=== PATIENT | male | born 1955 | race Caucasian/White ===

== ENCOUNTER 2020-03-12 14:58 | Inpatient (IN) | payer BC ==
[~2020-03-12] VITALS: Ht 185.4 cm; Wt 107.8 kg
[2020-03-12 15:29] LABS: BASO # 0.1 10^3/uL (0.0-0.2); BASO % 0.4 % (0.0-1.0); EOS # 0.2 10^3/uL (0.0-0.5); EOS % 1.6 % (0.0-3.0); HEMATOCRIT 47.9 % (42.0-52.0); HEMOGLOBIN 15.7 g/dl (13.5-17.5); LYMPH # 1.9 10^3/uL (1.5-5.0); LYMPH % 17.3 % (24.0-44.0); MEAN CORPUSCULAR HEMOGLOBIN 30.1 pg (27.0-33.0); MEAN CORPUSCULAR HGB CONC 32.8 g/dl (32.0-36.5); MEAN CORPUSCULAR VOLUME 91.8 fl (80.0-96.0); MONO % 8.6 % (0.0-5.0); NEUTROPHILS % 71.3 % (36.0-66.0); PLATELET COUNT, AUTOMATED 247 10^3/uL (150-450); RED BLOOD COUNT 5.22 10^6/uL (4.30-6.10); WHITE BLOOD COUNT 11.2 10^3/uL (4.0-10.0)
[2020-03-12 15:40] LABS: INR 0.91
[2020-03-12 15:41] LABS: PARTIAL THROMBOPLASTIN TIME 28.2 SECONDS (25.0-38.4)
--- NOTE | 2020-03-12 15:46 | REPVR ---
PROCEDURE INFORMATION: Exam: CT Head Without Contrast Exam date and time: 03/12/2020 3:18 PM Age: 64 years old Clinical indication: Other: Neuro symptoms; Additional info: CVA TECHNIQUE: Imaging protocol: Computed tomography of the head without contrast. Radiation optimization: All CT scans at this facility use at least one of these dose optimization techniques: automated exposure control; mA and/or kV adjustment per patient size (includes targeted exams where dose is matched to clinical indication); or iterative reconstruction. COMPARISON: No relevant prior studies available. FINDINGS: Brain: There are scattered foci of low density in the bermudez radiata and centrum semiovale, likely reflecting areas of gliosis, demyelination, and/or ischemic change. There are lacunar infarcts, age-indeterminate. Ventricles: Normal. No ventriculomegaly. Bones/joints: Unremarkable. No acute fracture. Sinuses: Visualized sinuses are unremarkable. No fluid levels. Mastoid air cells: Visualized mastoid air cells are well aerated. Vasculature: There is moderate intracranial vascular calcification. Soft tissues: Unremarkable. IMPRESSION: 1. There are scattered foci of low density in the bermudez radiata and centrum semiovale, likely reflecting areas of gliosis, demyelination, and/or ischemic change. If an acute infarct is clinically suspected, consider MRI with diffusion imaging. 2. There are lacunar infarcts, age-indeterminate. If an acute infarct is clinically suspected, consider MRI with diffusion imaging. Electronically signed by: Uriel Patel On 03/12/2020 15:45:50 PM
[2020-03-12 16:07] LABS: BLOOD UREA NITROGEN 14 MG/DL (7-18); CALCIUM LEVEL 8.9 MG/DL (8.8-10.2); CARBON DIOXIDE LEVEL 27 MEQ/L (21-32); CHLORIDE LEVEL 107 MEQ/L (98-107); CPK CREATINE PHOSPHOKINASE 152 U/L (39-308); CREATININE FOR GFR 0.97 MG/DL (0.70-1.30); GLOMERULAR FILTRATION RATE > 60.0 (>49); GLUCOSE, FASTING 83 MG/DL (70-100); MB/CK RELATIVE INDEX 2.63 (< OR =4); POTASSIUM SERUM 4.2 MEQ/L (3.5-5.1); SODIUM LEVEL 142 MEQ/L (136-145); TROPONIN I < 0.02 NG/ML (< 0.10)
--- NOTE | 2020-03-12 16:13 | REP ---
CHEST SINGLE VIEW: There is no evidence of acute infiltrate. No pleural effusion is seen. The heart is normal in size. The mediastinal silhouette is unremarkable. The visualized osseous structures are intact. IMPRESSION: No acute pulmonary disease. Electronically Signed by Isiah England MD 03/13/2020 07:18 P
[2020-03-12] MEDS ORDERED: ASPIRIN 325 MG TAB PO ONE (18:00)
--- NOTE | 2020-03-12 18:18 | HPEPDOC ---
General Date of Admission 03/12/20 Date of Service: Mar 12, 2020 Chief Complaint The patient is a 64-year-old male admitted with a reason for visit of Neuro Symptoms. Source: Patient History of Present Illness 64 year old male with no PMH visitin from [place] was working in the [employer] this afternoon. Around 1;45 pm he suddenly felt weakness of his left leg which worsened and progressed up to involve the left leg so that he could not raise his upper or lower extremity at all. He also noted decreased sensation on his left cheek and lower face like getting a novocaine shot associated with slurring of speech. This lasted less than an hour and had resolved completely while he was on the ambulance on his way to [facility]. In ED CT head was negative. Labs were within normal limits. On my evaluation his symptoms had completely resolved. He also complained of an itchy rash on his left calf present for the past 1 month. Red in color about 5cm x 5 cm, not elevated from the surface. Itchy. He has been applying cortisone ointment for the past week and says it looks better. He noted also some swelling around his left ankle. Truman admitted for evaluation for stroke / TIA. Home Medications Scheduled Doxycycline Hyclate (Doxycycline Hyclate) 100 Mg Tablet, 100 MG PO BID Scheduled PRN Miconazole Nitrate (Antifungal Cream) 2% Cream..g., 0 DOSE TOP BIDP PRN for RASH/ITCHING Allergies Coded Allergies: No Known Allergies (Unverified , 03/12/20) Past Medical History Medical History none Surgical History Right brachial tendon repair Family History Significant Family History: Cancer (father : bladder cancer), Diabetes (mother), Heart disease (mother and father with CABG both.) Social History * Smoker: current smoker Alcohol: Denies Drugs: denies A-FIB/CHADSVASC A-FIB History Current/History of A-Fib/PAF?: No Review of Systems Constitutional: Denies: Chills, Fever, Night Sweats Eyes: Denies: Pain, Vision change ENT: Denies: Head Aches, Ear Pain, Dysphagia Skin: Reports: Rash (on the left calf), Itching (left calf) Pulmonary: Denies: Dyspnea, Cough Cardiovascular: Denies: Chest Pain, Palpitations, Orthopnea, Paroxysmal Noc. Dyspnea, Lt Headedness Gastrointestinal: Denies: Nausea, Vomiting, Abdominal Pain, Diarrhea Genitourinary: Denies: Dysuria, Frequency, Incontinence, Retention Hematologic: Denies: Bruising, Bleeding Excessively Musculoskeletal: Denies: Neck Pain, Back Pain, Joint Pain, Muscle Pain, Spasms Neurological: Reports: Weakness, Numbness, Incoordination, Change in speech Psych: Reports: Mood Normal; Denies: Depression, Memory Issues Physical Examination General Exam: Positive: Alert, Cooperative, No Acute Distress Eye Exam: Positive: PERRLA, Conjunctiva & lids normal, EOMI; Negative: Sclera icteric ENT Exam: Positive: Atraumatic, Mucous membr. moist/pink, Pharynx Normal Neck Exam: Positive: Supple; Negative: JVD, thyromegaly Chest Exam: Positive: Clear to auscultation, Normal air movement Heart Exam: Positive: Rate Normal, Regular Rhythm, Normal S1, Normal S2; Negative: Murmurs, Rubs Telemetry: Positive: No significant arrhythmia Abdomen Exam: Positive: Normal bowel sounds, Soft; Negative: Tenderness, Hepatospenomegaly Extremity Exam: Positive: Edema (left 1+ edema); Negative: Clubbing, Cyanosis Skin Exam: Positive: Rash (erythemaous rash on the left calf for 1 month, itchy) Neuro Exam: Positive: Normal Speech, Strength at 5/5 X4 ext, Normal Tone, Sen sation Intact, Reflexes 2+ Vital Signs Vital Signs Date Time Temp Pulse Resp B/P (MAP) Pulse Ox O2 Delivery O2 Flow Rate FiO2 03/12/20 17:15 73 97 Room Air 03/12/20 16:45 127/71 (89) 03/12/20 15:09 97.3 19 Laboratory Data Labs 24H Laboratory Tests 2 03/12/20 15:12: Immature Granulocyte % (Auto) 0.8, Neutrophils (%) (Auto) 71.3H, Lymphocytes (%) (Auto) 17.3L, Monocytes (%) (Auto) 8.6H, Eosinophils (%) (Auto) 1.6, Basophils (%) (Auto) 0.4, Neutrophils # (Auto) 8.0, Lymphocytes # (Auto) 1.9, Monocytes # (Auto) 1.0H, Eosinophils # (Auto) 0.2, Basophils # (Auto) 0.1, Nucleated Red Blood Cells % (auto) 0.0, Prothrombin Time 12.0, Prothromb Time International Ratio 0.91, Activated Partial Thromboplast Time 28.2, Anion Gap 8, Glomerular Filtration Rate > 60.0, Calcium Level 8.9, Total Creatine Kinase 152, Creatine Kinase MB 4.0H, Creatine Kinase MB Relative Index 2.63, Troponin I < 0.02 CBC/BMP Laboratory Tests 03/12/20 15:12 Assessment/Plan 64 year old male with no PMH visitin from [place] was working in the [employer] this afternoon. Around 1;45 pm he suddenly felt weakness of his left leg which worsened and progressed up to involve the left leg so that he could not raise his upper or lower extremity at all. He also noted decreased sensation on his left cheek and lower face like getting a novocaine shot associated with slurring of speech. This lasted less than an hour and had resolved completely while he was on the ambulance on his way to [facility]. In ED CT head was negative. Labs were within normal limits. On my evaluation his symptoms had completely resolved. He also complained of an itchy rash on his left calf present for the past 1 month. Red in color about 5cm x 5 cm, not elevated from the surface. Itchy. He has been applying cortisone ointment for the past week and says it looks better. He noted also some swelling around his left ankle. Patient admitted for evaluation for stroke / TIA. Stroke/TIA will get MRI and MRA of brain, carotid US, echo. telemetry, neurochecks asa 1 dose. Rash on calf will get lyme titre triamcinolone ointment. Doxycycline Smoker discussed about quitting smoking offered nicotine patch. Plan / VTE VTE Prophylaxis Ordered?: Yes TAYLOR CONTRERAS MD Mar 12, 2020 18:18
--- NOTE | 2020-03-12 19:22 | ECGEPIP ---
[facility] - ED Test Date: 2020-03-12 Pat Name: DORIAN BARAJAS Department: Room: - Gender: Male Crnp: sena : 1955 Requested By: KYLAH MCKENNA Order Number: [id number] Reading MD: Lucy Moser Measurements Intervals [place] Rate: 71 P: 44 [place]: 164 QRS: 30 QRSD: 113 T: 25 QT: 389 QTc: 423 Interpretive Statements SINUS RHYTHM MODERATE INTRAVENTRICULAR CONDUCTION DELAY NONSPECIFIC ST T WAVE CHANGES NO PRIOR ECG FOR COMPARISON Electronically Signed on 03-12-2020 19:22:22 EDT by Lucy Moser
--- NOTE | 2020-03-12 19:27 | REPVR ---
PROCEDURE INFORMATION: Exam: MR Head Without Contrast Exam date and time: 03/12/2020 7:10 PM Age: 64 years old Clinical indication: Other: ? Stroke; Additional info: Tia/stroke TECHNIQUE: Imaging protocol: MR of the head without contrast. 3D rendering: MIP and/or 3D reconstructed images were created by the technologist. COMPARISON: CT Head without contrast 03/12/2020 3:12 PM FINDINGS: Brain: No acute infarct. Mild chronic microvascular ischemic changes. Ventricles: Normal. No ventriculomegaly. Bones/joints: Unremarkable. Sinuses: Normal as visualized. No acute sinusitis. Mastoid air cells: Normal as visualized. No mastoid effusion. Orbits: Unremarkable. Soft tissues: Unremarkable. Other vasculature: Flow voids are maintained. IMPRESSION: No acute intracranial abnormality. Electronically signed by: Jerry Corrigan On 03/12/2020 19:27:33 PM
--- NOTE | 2020-03-12 19:29 | REPVR ---
PROCEDURE INFORMATION: Exam: MR Angiogram Head Without Contrast, Arteries Exam date and time: 03/12/2020 7:10 PM Age: 64 years old Clinical indication: Weakness; Additional info: Stroke TECHNIQUE: Imaging protocol: MR angiogram head without contrast. Exam focused on the arteries. COMPARISON: CT Head without contrast 03/12/2020 3:12 PM FINDINGS: Anterior cerebral arteries: Intracranial segment is patent with no significant stenosis. No aneurysm. Right internal carotid artery: Intracranial segment is patent with no significant stenosis. No aneurysm. Right middle cerebral artery: No occlusion or significant stenosis. No aneurysm. Right posterior cerebral artery: No occlusion or significant stenosis. No aneurysm. Right vertebral artery: No occlusion or significant stenosis. No aneurysm. Left internal carotid artery: Intracranial segment is patent with no significant stenosis. No aneurysm. Left middle cerebral artery: No occlusion or significant stenosis. No aneurysm. Left posterior cerebral artery: origin of the left posterior cerebral artery. Left vertebral artery: No occlusion or significant stenosis. No aneurysm. Basilar artery: No occlusion or significant stenosis. No aneurysm. IMPRESSION: No acute abnormality. Electronically signed by: Jerry Corrigan On 03/12/2020 19:29:37 PM
[2020-03-12 19:50] VITALS: BP 142/82
--- NOTE | 2020-03-12 20:17 | REPVR ---
PROCEDURE INFORMATION: Exam: US Duplex Bilateral Extracranial Arteries Exam date and time: 03/12/2020 7:25 PM Age: 64 years old Clinical indication: Numbness / parasthesia and speech disturbance and weakness, extremity and weakness, facial; Left; Slurred speech; Additional info: TIA TECHNIQUE: Imaging protocol: Real-time Duplex ultrasound scan of the bilateral carotid and vertebral arteries combining almendarez scale, color Doppler and spectral waveform analysis. Bilateral exam. COMPARISON: CT Head without contrast 03/12/2020 3:12 PM FINDINGS: Right common carotid artery: Unremarkable. No occlusion or stenosis. Waveforms are normal. Right internal carotid artery: Unremarkable. No occlusion or stenosis. Waveforms are normal. Right ICA/CCA ratio: 0.7 Right external carotid artery: No stenosis in the origin. Right vertebral artery: Unremarkable. Antegrade flow. Left common carotid artery: Unremarkable. No occlusion or stenosis. Waveforms are normal. Left internal carotid artery: Unremarkable. No occlusion or stenosis. Waveforms are normal. Left ICA/CCA ratio: 0.5 Left external carotid artery: No stenosis in the origin. Left vertebral artery: Unremarkable. Antegrade flow. IMPRESSION: Mild stenosis(less than 50%) of bilateral internal carotid arteries with NASCET criteria. REFERENCES: SRU CRITERIA. The degree of internal carotid artery stenosis is based on criteria defined by the Society of Radiologists in Ultrasound (SRU). Normal is no stenosis. Mild is less than 50% stenosis. Moderate is 50-69% stenosis. Severe is greater than 69% stenosis to near occlusion. Near occlusion is a markedly narrowed lumen. Total occlusion is no detectable patent lumen. Electronically signed by: Jerry Corrigan On 03/12/2020 20:16:52 PM
[2020-03-12] MEDS ORDERED: ENOXAPARIN 40MG/0.4ML SYRINGE (J1650 PER 10MG) SC SCH (21:00)
[2020-03-12] MEDS: DOXYCYCLINE HYCLATE 100MG TABLET PO SCH (22:14)
[2020-03-12] MEDS: TRIAMCINOLONE ACET 0.1% OINTMENT 15 GM TOP SCH (22:21)
[2020-03-13 06:00] VITALS: BP 100/57
[2020-03-13 06:25] LABS: HEMATOCRIT 45.6 % (42.0-52.0); HEMOGLOBIN 14.9 g/dl (13.5-17.5); MEAN CORPUSCULAR HEMOGLOBIN 29.7 pg (27.0-33.0); MEAN CORPUSCULAR HGB CONC 32.7 g/dl (32.0-36.5); PLATELET COUNT, AUTOMATED 228 10^3/uL (150-450); RED BLOOD COUNT 5.01 10^6/uL (4.30-6.10); WHITE BLOOD COUNT 8.7 10^3/uL (4.0-10.0)
[2020-03-13 06:49] LABS: BLOOD UREA NITROGEN 12 MG/DL (7-18); CALCIUM LEVEL 8.6 MG/DL (8.8-10.2); CARBON DIOXIDE LEVEL 23 MEQ/L (21-32); CHLORIDE LEVEL 110 MEQ/L (98-107); CREATININE FOR GFR 0.87 MG/DL (0.70-1.30); GLOMERULAR FILTRATION RATE > 60.0 (>49); GLUCOSE, FASTING 94 MG/DL (70-100); POTASSIUM SERUM 4.2 MEQ/L (3.5-5.1); SODIUM LEVEL 141 MEQ/L (136-145)
[2020-03-13] MEDS ORDERED: MICONAZOLE TOPICAL 2% CREAM 15GM TOP PRN (11:15)
[2020-03-13] MEDS: DOXYCYCLINE HYCLATE 100MG TABLET PO SCH (11:21)
[2020-03-13] MEDS: TRIAMCINOLONE ACET 0.1% OINTMENT 15 GM TOP SCH (11:22)
[2020-03-13 14:00] VITALS: BP 135/67
[2020-03-13] MEDS ORDERED: DOXY100T PO (16:51)
[2020-03-13] MEDS ORDERED: MICO2CR TOP (16:51)
--- NOTE | 2020-03-13 17:36 | REP ---
Left lower extremity Duplex Doppler venous ultrasound: Real time compression and duplex Doppler interrogation of the left lower extremity deep venous system is performed. The left common femoral, superficial femoral and popliteal veins are fully compressible with transducer pressure and demonstrate normal spontaneous and phasic flow, without evidence of deep venous thrombosis. Impression: No evidence of deep venous thrombosis of the left lower extremity femoral popliteal venous system. Electronically Signed by Isiah England MD 03/13/2020 05:28 P
--- NOTE | 2020-03-13 18:47 | DS.PDOC ---
Discharge Summary General Date of Admission Mar 12, 2020 at 17:48 Date of Discharge 03/13/2020 Discharge Summary PROCEDURES PERFORMED DURING STAY: [None]. ADMITTING DIAGNOSES: 1. Stroke/TIA 2. Rash on calf 3. Smoker DISCHARGE DIAGNOSES: 1. TIA 2. Tinea corporis 3. Tobacco use 4. Prophylactic tx to lyme disease COMPLICATIONS/CHIEF COMPLAINT: TIA. HISTORY OF PRESENT ILLNESS: Pt is a 64 yo male with no PMH visiting from [place] and around 1:45 pm on the day of admission while working he suddenly felt weakness of his left leg which worsened and progressed up to involve the left leg so that he could not raise his left upper or lower extremity at all. He also noted decreased sensation on his left cheek and lower face with slurring of speech. All the above symptoms lasted less than an hour and had resolved completely while he was on the ambulance on his way to [facility]. He also complained of an itchy rash on his left calf presentX 1 month, red in color about 5cm x 5 cm which is pruritic. He has been applying cortisone ointmentX 1week and says it looks better HOSPITAL COURSE: Pt was subsequently admitted to the hospital for TIA. His CT head, MRI brain, and MRA brain all showed no acute changes. Pt was started on doxycycline upon admission as there was questionable lyme dz. He was also started on traimcinolone cream. Patient was admitted for evaluation for stroke/TIA. The rash on left calf is likely d/t tinea corporis and miconazole cream was started. He was noted to have some swelling in the ankle and duplex b/l LE were ordered, neg. Echo heart done 03/13/2020. On the day of discharge, pt reported no extremity weakness or neurological symptoms; denies any CP, palp, dyspnea, fever, chills, or leg pain. Reported left leg itchiness and swelling. DISCHARGE MEDICATIONS: Please see below. ALLERGIES: Please see below. PHYSICAL EXAMINATION ON DISCHARGE: VITAL SIGNS: Please see below. GENERAL APPEARANCE: Alert and awake, not in acute distress HEENT: Head normocephalic, atraumatic, b/l pupil equal and round. RESPIRATORY: CTA b/l, no rales, wheezing, or rhonchi CARDIOVASCULAR: RRR, normal S1 and S2, no murmur ABDOMEN: Soft, no guarding, no abdominal pain. EXTREMITIES: No Rebeca's sign b/l. Mild swelling in left LE below knee. +5/5 strength in all 4 extremities. SKIN:Scaly anuuly patch without raised border in left calf around 1.5X2cm, ropiness/scar felt more proximal to rash NEUROLOGICAL: Memory and cognitive function grossly stable. CN2-12 intact. PSYCHIATRIC: Mood appro to situation LABORATORY DATA: Please see below. IMAGING: B/l carotid US showed mild stenosis less than 50% of bilateral internal carotid arteries with NASCET criteria. MRI, MRA, and CT brain showed no acute changes B/l LE US showed no evidence of DVT Formal echo heart report pending PROGNOSIS: Good ACTIVITY: [As tolerated]. DIET: low fat low cholesterol diet DISCHARGE PLAN AND INSTRUCTIONS: 1. Take medication as prescribed 2. Follow up with PCP in a week 3. Follow up heart echo report ITEMS TO FOLLOWUP ON ON OUTPATIENT: 1. TIA 2. Tinea corporis 3. Heart echo report DISCHARGE CONDITION: [Stable]. TIME SPENT ON DISCHARGE: Greater than [35] minutes. Attending attestation: I evaluated and examined the patient in person; I discussed the care with Resident in detail and agree with the plan above. Vital Signs/I&Os Vital Signs Date Time Temp Pulse Resp B/P (MAP) Pulse Ox O2 Delivery O2 Flow Rate FiO2 03/13/20 14:00 97.4 71 19 135/67 (89) 95 Room Air I&O- Last 24 Hours up to 6 AM 03/13/20 06:00 Intake Total 1320 ml Output Total 250 ml Balance 1070 ml Laboratory Data Labs 24H Laboratory Tests 2 03/13/20 06:01: Nucleated Red Blood Cells % (auto) 0.0, Anion Gap 8, Glomerular Filtration Rate > 60.0, Calcium Level 8.6L CBC/BMP Laboratory Tests 03/13/20 06:01 Discharge Medications Scheduled Doxycycline Hyclate (Doxycycline Hyclate) 100 Mg Tablet, 100 MG PO BID Scheduled PRN Miconazole Nitrate (Antifungal Cream) 2% Cream..g., 0 DOSE TOP BIDP PRN for RASH/ITCHING Allergies Coded Allergies: No Known Allergies (Unverified , 03/12/20) GME ATTESTATION GME ATTESTATION My faculty preceptor for this patient encounter was physically present during the encounter and was fully available. All aspects of the patient interview, examination, medical decision making process, and medical care plan development were reviewed and approved by the faculty preceptor. The faculty preceptor is aware and concurs with the plan as stated in the body of this note and will attest to such by his/her cosignature. LUIS ALBERTO RAMÍREZ DO Mar 13, 2020 18:47 JEF TRUJILLO MD Mar 17, 2020 08:25
--- NOTE | 2020-03-14 13:25 | ECHO ---
DATE OF PROCEDURE: 03/13/2020 DATE OF : 1955 AGE: 64 GENDER: Male HEIGHT: 73 inches WEIGHT: 238 pounds BODY SURFACE AREA: 2.32 m2 INPATIENT: 4 ulm room 4225 REFERRING PHYSICIAN: Dr. Lisa Ho INDICATION: Transient ischemic attack (TIA) query cardiac source of embolic material. MEASUREMENTS: 2-D Measurements: RV: 4.5 cm LV: 5.1 cm Septum: 1.0 cm Posterior wall: 1.0 cm Aortic root: 3.7 cm LA: 3.6 cm LVEF: 65% Doppler Measurements: AV: 1.3 m/sec LVOT: 1.1 m/sec LVOT diameter: 2.0 cm MV - E: 54, A: 48, EA ratio: 1.1 Early mitral deceleration time: 254 ms E prime medial: 7, A prime medial: 13, E prime lateral: 14.5 PV: 0.8 m/sec Pulmonary artery acceleration time: 90 ms RVSP: 40 mmHg IVC: 1.6 cm COMMENTS: Normal sinus rhythm without intraventricular conduction disturbance. M-mode and two-dimensional echocardiography was performed with pulsed, continuous wave, color flow and tissue Doppler studies. Normal left ventricular size, wall thickness and wall motion. Normal left atrial size and Doppler assessment of LV diastolic function and estimated mean left atrial pressure. Mildly dilated right heart chambers with normal wall motion and Doppler evidence of moderate pulmonary hypertension. Normal IVC size and collapse against an elevated central venous pressure. Normal aortic dimensions. Mild aortic valvular sclerosis without stenosis and only very mild insufficiency. Normal-appearing mitral valvular apparatus and leaflet excursion with trace to very mild insufficiency (physiologic). Normal tricuspid valve with very mild insufficiency. No apparent intracardiac mass or pericardial effusion. Saline contrast study was performed from the apical four-chamber projection using 10 mL of agitated saline. There was good opacification of the right heart chambers and during Valsalva there was no visible contrast in the left heart chambers to suggest intracardiac shunt.
[2020-03-14 16:27] LABS: Lyme Disease IgG/IgM Antibodie <0.91 ISR (0.00-0.90); Lyme Disease IgM Ab Quantitati <0.80 index (0.00-0.79)
== END 2020-03-13 18:00 | disposition home or self-care (01) | DRG 47 ==
LOC: M ED 14:58 → EDBD 14:58 → M ED INP 17:48 → ENRESERV 18:12 → M MSPAV 19:50
PROVIDERS: ADMIT Internal Medicine Nephrology; ATTEND Internal Medicine